=== PATIENT | female | born 1960 | race Caucasian/White ===

== ENCOUNTER 2020-07-06 13:46 | Emergency (ER) | payer SELFPAY ==
[~2020-07-06] VITALS: Ht 170.2 cm; Wt 102.1 kg
[2020-07-06] MEDS ORDERED: PROGESTERONE (14:02)
[2020-07-06] MEDS ORDERED: ESTROGEN (14:02)
== END 2020-07-06 14:55 | disposition home or self-care (01) ==
LOC: ER 13:46
DX: M54.32 Sciatica, left side (principal)
CPT/HCPCS: 96372; 99283-25; A9270-GY; J1885